=== PATIENT | male | born 1995 | race Two or more races ===

== ENCOUNTER 2023-01-07 07:01 | Emergency (ER) | payer BC, SELFPAY ==
[2023-01-07 07:09] VITALS: BP 123/83; PULSE 79; RESP 16; TEMP 36.1; O2SAT 98; BMI 23.6
--- NOTE | 2023-01-07 07:16 | CRLHL7_ITS ---
For Patients: As a result of the Century Cures Act, medical imaging exams and procedure reports are released immediately into your electronic medical record. You may view this report before your referring provider. If you have questions, please contact your health care provider. Indication: Tripped, ankle pain Technique: Three views Comparison: None Findings/Impression: Bones: Alignment is normal. No fractures or bone lesions. Joint spaces: Unremarkable. Soft tissues: Unremarkable. Dictated by Dimas Waller MD @ 01/07/2023 7:39:27 AM (Electronically Signed)
--- NOTE | 2023-01-07 07:17 | ED_ITS ---
HPI - Extremity Injury (Lower) General Date Seen: 01/07/23 Chief Complaint: Extremity Pain/Injury, Lower Stated Complaint: R ankle injury Time Seen by Provider: 01/07/23 07:16 Source: patient Mode of arrival: ambulatory Limitations: no limitations History of Present Illness HPI Narrative: Patient is a 27-year-old male with no pertinent medical problems presenting to the emergency department for right ankle pain. He says was getting ready for work today he tripped and injured his right ankle. He has been able to ambulate. Denies any numbness or weakness. Does have some tenderness to the anterior portion of the ankle. Denies any knee or foot pain at this time. No other injuries noted. [facility] Social History Smoking Status: Never smoker Do you use any of these nicotine containing products: None Second hand tobacco smoke exposure: No How often do you have a drink containing alcohol: 2-3 times a week How many standard drinks containing alcohol do you have on a typical day: 1 or 2 How often do you have six or more drinks on one occasion: Never AUDIT-C Alcohol total score: 3 Non-prescribed substance use: denies use service: No Exam Narrative: Exam Narrative: Const: Well-nourished, Well-developed, in mild distress Eyes: PERRL, no conjunctival injection, and symmetrical lids HENT: Atraumatic external nose and ears. Moist mucous membranes. MSK:Extremities w/o deformity, Normal Active ROM, tenderness to the anterior portion of the ankle on although lateral malleolus. No swelling noted Skin: Warm, Dry. No rashes or lesions. Neuro: Normal Muscle tone, No focal neurological deficits. Psych: Awake, Alert, & Oriented x3. Appropriate mood and affect. Const: Vital Signs, click to edit/add: Vital Signs - 24 hr 01/07/23 07:09 Temperature 96.9 F L Pulse Rate [Pulse Oximeter] 79 Respiratory Rate 16 Blood Pressure [Ri ght Upper Arm] 123/83 Pulse Oximetry 98 Oxygen Delivery Me thod Room Air Course Vital Signs Vital signs: Initial Vital Signs Temperature 96.9 F L 01/07/23 07:09 Temperature Source Temporal Artery Scan 01/07/23 07:09 Pulse Rate 79 01/07/23 07:09 Pulse Rhythm Regular 01/07/23 07:09 Respiratory Rate 16 01/07/23 07:09 Blood Pressure 123/83 01/07/23 07:09 Blood Pressure Mean 96 01/07/23 07:09 Blood Pressure Position Supine 01/07/23 07:09 Pulse Oximetry 98 01/07/23 07:09 Oxygen Delivery Method Room Air 01/07/23 07:09 Vital Signs Temperature 96.9 F L 01/07/23 07:09 Pulse Rate 79 01/07/23 07:09 Respiratory Rate 16 01/07/23 07:09 Blood Pressure 123/83 01/07/23 07:09 Pulse Oximetry 98 01/07/23 07:09 Oxygen Delivery Method Room Air 01/07/23 07:09 Temperature 96.9 F L 01/07/23 07:09 Pulse Rate 79 01/07/23 07:09 Respiratory Rate 16 01/07/23 07:09 Blood Pressure 123/83 01/07/23 07:09 Pulse Oximetry 98 01/07/23 07:09 Oxygen Delivery Method Room Air 01/07/23 07:09 MDM - Extremity Injury (Lower) MDM Narrative Medical decision making narrative: Patient 27-year-old male presenting for right ankle pain. We will do x-rays of his ankle. He is not requesting any pain medication at this time. X-rays came back negative. He is otherwise doing well can be discharged home. Imaging Data Right ankle x-ray: Radiologist's impression: Bones: Alignment is normal. No fractures or bone lesions. Joint spaces: Unremarkable. Soft tissues: Unremarkable. Dictated by Dimas Waller MD @ 01/07/2023 7:39:27 AM Discharge Plan Discharge Clinical Impression: Ankle sprain and strain Patient Disposition: Home, Self-Care Condition: Stable Instructions: Ankle Sprain (DC) Additional Instructions: Take Tylenol and ibuprofen for pain. Return for new worsening symptoms Follow Up/Referrals: Provider,Not a Local [Primary Care Provider] - Stand Alone Forms: [employer] Info Instructions
== END 2023-01-07 08:01 | disposition home or self-care (01) ==
PROVIDERS: Emergency Provider Student in an Organized Health Care Education/Training Program
DX: S93.401A Sprain of unspecified ligament of right ankle, initial encounter (principal); W01.0XXA Fall on same level from slipping, tripping and stumbling without subsequent striking against object, initial encounter; Y99.0 Civilian activity done for income or pay
CPT/HCPCS: 73610; 99282; 99283